=== PATIENT | female | born 1970 | race Caucasian/White ===

== ENCOUNTER 2017-09-26 18:25 | Emergency (ER) | payer BC ==
[~2017-09-26] VITALS: Ht 160 cm; Wt 56.7 kg
[~2017-09-26 18:25] MED LIST: [UNRECOGNIZED DRUG - CODE] PO
[2017-09-26 18:32] VITALS: BP 116/75
[2017-09-26] MEDS ORDERED: ONDANSETRON HCL 4 MG/2 ML VIAL IM ONE (21:15)
[2017-09-26] MEDS ORDERED: MEPERIDINE HCL (50 MG/ML) 1 ML VIAL IM ONE (21:15)
== END 2017-09-27 00:59 | disposition home or self-care (01) ==
LOC: ER 18:25 → MERGE 18:25 → ER 09-27 00:59
DX: R51 Headache (principal)
CPT/HCPCS: 70450; 96372; 99284; J2175; J2405

== ENCOUNTER → 2018-08-15 | Outpatient (CLI) | payer BC ==
[2018-08-15 08:08] LABS: Basophils # (auto) 0 uL; Eosinophils # (auto) 0.1 uL; Monocytes # (auto) 0.5 uL; Nucleated Red Blood Cells % 0.1 %
[2018-08-15 08:11] LABS: Basophils % (auto) 0.5 % (0.0-2.0); Eosinophils % (auto) 1.7 % (0.0-7.0); Hematocrit 41.7 % (36.0-46.0); Hemoglobin 14.4 g/dL (12.2-16.2); Lymphocytes % (auto) 46.3 % (10.0-50.0); Mean Corpuscular Hemoglobin 33.9 pg (28.0-32.0); Mean Corpuscular Hgb Conc. 34.6 g/dL (32.0-36.0); Monocytes % (auto) 7.6 % (0.0-12.0); Neutrophils # (auto) 2.9 uL; Neutrophils % (auto) 43.9 % (37.0-80.0); Platelet Count (auto) 279 10^3/uL (140-450); Red Blood Cells 4.26 10^6/uL (4.0-5.20); Red Cell Distribution Width 13.7 % (11.8-14.3); White Blood Cell 6.6 10^3/uL (4.4-10.8)
[2018-08-15 08:15] LABS: Albumin 3.3 g/dL (3.4-5.0); BUN/Creatinine Ratio 16.8; Calcium 8.5 mg/dL (8.5-10.1); Potassium 3.8 mmol/L (3.5-5.1)
[2018-08-15 08:19] LABS: Bilirubin, Total 0.4 mg/dL (0.2-1.0); CRP High Sensitivity 0.46 mg/dL (< 0.3); Total Protein 7.6 g/dL (6.4-8.2)
== END | disposition home or self-care (01) ==
LOC: LAB 07:21
PROVIDERS: ATTEND Internal Medicine
DX: K50.90 Crohn's disease, unspecified, without complications (principal); E78.49 Other hyperlipidemia
CPT/HCPCS: 36415; 80053; 80061; 85025; 86141

== ENCOUNTER → 2018-12-12 | Outpatient (CLI) | payer BC ==
[2018-12-12 08:21] LABS: Basophils # (auto) 0 uL; Basophils % (auto) 0.4 % (0.0-2.0); Eosinophils # (auto) 0.1 uL; Eosinophils % (auto) 1.8 % (0.0-7.0); Hematocrit 43.2 % (36.0-46.0); Hemoglobin 14.8 g/dL (12.2-16.2); Lymphocytes # (auto) 3.4 uL; Lymphocytes % (auto) 40.5 % (10.0-50.0); Mean Corpuscular Hemoglobin 33.4 pg (28.0-32.0); Mean Corpuscular Hgb Conc. 34.2 g/dL (32.0-36.0); Mean Corpuscular Volume 97.5 fL (80.0-100.0); Monocytes # (auto) 0.6 uL; Monocytes % (auto) 6.8 % (0.0-12.0); Neutrophils # (auto) 4.2 uL; Neutrophils % (auto) 50.5 % (37.0-80.0); Platelet Count (auto) 280 10^3/uL (140-450); Red Blood Cells 4.43 10^6/uL (4.0-5.20); White Blood Cell 8.3 10^3/uL (4.4-10.8)
[2018-12-12 09:04] LABS: Albumin 3.6 g/dL (3.4-5.0); Calcium 9.1 mg/dL (8.5-10.1); Potassium 3.8 mmol/L (3.5-5.1)
[2018-12-12 09:08] LABS: BUN/Creatinine Ratio 16.2; Bilirubin, Total 0.6 mg/dL (0.2-1.0); CRP High Sensitivity 0.05 mg/dL (< 0.3); Total Protein 7.8 g/dL (6.4-8.2)
== END | disposition home or self-care (01) ==
LOC: LAB 07:26
PROVIDERS: ATTEND Internal Medicine
DX: K50.90 Crohn's disease, unspecified, without complications (principal); R61 Generalized hyperhidrosis
CPT/HCPCS: 36415; 80053; 83001; 83615; 85025; 86141

== ENCOUNTER → 2019-02-27 | Outpatient (CLI) | payer BC ==
[2019-02-27 10:46] LABS: Basophils # (auto) 0.1 uL; Eosinophils # (auto) 0.1 uL; Eosinophils % (auto) 1.3 % (0.0-7.0); Hematocrit 43.4 % (36.0-46.0); Hemoglobin 14.9 g/dL (12.2-16.2); Lymphocytes # (auto) 3.2 uL; Lymphocytes % (auto) 42.3 % (10.0-50.0); Mean Corpuscular Hemoglobin 33.4 pg (28.0-32.0); Mean Corpuscular Hgb Conc. 34.2 g/dL (32.0-36.0); Mean Corpuscular Volume 97.8 fL (80.0-100.0); Monocytes # (auto) 0.5 uL; Monocytes % (auto) 6.1 % (0.0-12.0); Neutrophils # (auto) 3.8 uL; Neutrophils % (auto) 49.3 % (37.0-80.0); Platelet Count (auto) 298 10^3/uL (140-450); Red Blood Cells 4.44 10^6/uL (4.0-5.20); White Blood Cell 7.7 10^3/uL (4.4-10.8)
[2019-02-27 12:25] LABS: Potassium 4.1 mmol/L (3.5-5.1)
[2019-02-27 12:49] LABS: Albumin 3.6 g/dL (3.4-5.0); BUN/Creatinine Ratio 15.6; Bilirubin, Total 0.5 mg/dL (0.2-1.0); Calcium 8.7 mg/dL (8.5-10.1); Total Protein 7.4 g/dL (6.4-8.2)
== END | disposition home or self-care (01) ==
LOC: LAB 10:28
PROVIDERS: ATTEND Internal Medicine Gastroenterology
DX: K50.90 Crohn's disease, unspecified, without complications (principal)
CPT/HCPCS: 36415; 80053; 85025

== ENCOUNTER → 2019-05-24 | Outpatient (CLI) | payer BC ==
[2019-05-24 13:11] LABS: Basophils # (auto) 0.1 uL; Basophils % (auto) 0.6 % (0.0-2.0); Eosinophils # (auto) 0.2 uL; Eosinophils % (auto) 1.5 % (0.0-7.0); Hematocrit 45.9 % (36.0-46.0); Hemoglobin 15.6 g/dL (12.2-16.2); Lymphocytes % (auto) 27.7 % (10.0-50.0); Mean Corpuscular Hemoglobin 33.4 pg (28.0-32.0); Mean Corpuscular Hgb Conc. 34.1 g/dL (32.0-36.0); Mean Corpuscular Volume 97.9 fL (80.0-100.0); Monocytes # (auto) 0.7 uL; Monocytes % (auto) 6.3 % (0.0-12.0); Neutrophils # (auto) 6.9 uL; Neutrophils % (auto) 63.9 % (37.0-80.0); Platelet Count (auto) 271 10^3/uL (140-450); Red Blood Cells 4.68 10^6/uL (4.0-5.20); Red Cell Distribution Width 13.1 % (11.8-14.3); White Blood Cell 10.8 10^3/uL (4.4-10.8)
[2019-05-24 13:22] LABS: Calcium 9.6 mg/dL (8.5-10.1)
[2019-05-24 13:26] LABS: BUN/Creatinine Ratio 16.3; Bilirubin, Total 0.6 mg/dL (0.2-1.0); Total Protein 8.3 g/dL (6.4-8.2)
== END | disposition home or self-care (01) ==
LOC: LAB 12:49
PROVIDERS: ATTEND Internal Medicine
DX: J02.9 Acute pharyngitis, unspecified (principal)
CPT/HCPCS: 36415; 80053; 85025; 85730; 86308; 87070

== ENCOUNTER 2019-05-25 08:51 | Emergency (ER) | payer BC ==
[~2019-05-25] VITALS: Ht 160 cm; Wt 58.5 kg
[2019-05-25 09:04] VITALS: BP 123/61
[2019-05-25] MEDS ORDERED: cefTRIAXone SOD 1,000 MG VL IM ONE (11:00)
== END 2019-05-25 11:17 | disposition home or self-care (01) ==
LOC: ER 08:51
DX: J02.9 Acute pharyngitis, unspecified (principal)
CPT/HCPCS: 96372; 99283; J0696

== ENCOUNTER → 2019-05-27 | Outpatient (CLI) | payer BC ==
[~2019-05-27] MED LIST changes: +GABA100C9 PO
[2019-05-27 13:19] LABS: Basophils # (auto) 0 uL; Basophils % (auto) 0.5 % (0.0-2.0); Eosinophils # (auto) 0 uL; Eosinophils % (auto) 0.3 % (0.0-7.0); Hematocrit 43.3 % (36.0-46.0); Hemoglobin 15.1 g/dL (12.2-16.2); Lymphocytes # (auto) 1.5 uL; Mean Corpuscular Hemoglobin 34.2 pg (28.0-32.0); Mean Corpuscular Hgb Conc. 34.8 g/dL (32.0-36.0); Mean Corpuscular Volume 98.3 fL (80.0-100.0); Monocytes # (auto) 0.2 uL; Neutrophils # (auto) 7.1 uL; Neutrophils % (auto) 80.2 % (37.0-80.0); Platelet Count (auto) 281 10^3/uL (140-450); Red Blood Cells 4.41 10^6/uL (4.0-5.20); White Blood Cell 8.8 10^3/uL (4.4-10.8)
[2019-05-27 13:52] LABS: Calcium 9.3 mg/dL (8.5-10.1); Potassium 3.9 mmol/L (3.5-5.1)
[2019-05-27 13:58] LABS: Albumin 4.1 g/dL (3.4-5.0); BUN/Creatinine Ratio 15.7; Bilirubin, Total 0.4 mg/dL (0.2-1.0); Total Protein 8.6 g/dL (6.4-8.2)
== END | disposition home or self-care (01) ==
LOC: LAB 12:50
PROVIDERS: ATTEND Internal Medicine
DX: J02.9 Acute pharyngitis, unspecified (principal); R53.83 Other fatigue
CPT/HCPCS: 36415; 80053; 85025; 85652; 86644; 86645; 86664; 86703

== ENCOUNTER 2019-05-30 13:22 | Inpatient (IN) | payer BC ==
[~2019-05-30] VITALS: Ht 160 cm; Wt 63.0 kg
[~2019-05-30 13:22] MED LIST changes: -GABA100C9 PO
[2019-05-30 14:10] LABS: Basophils # (auto) 0.1 uL; Basophils % (auto) 0.7 % (0.0-2.0); Eosinophils # (auto) 0.1 uL; Eosinophils % (auto) 0.8 % (0.0-7.0); Hematocrit 43.6 % (36.0-46.0); Lymphocytes # (auto) 4.5 uL; Lymphocytes % (auto) 36.8 % (10.0-50.0); Mean Corpuscular Hgb Conc. 34.4 g/dL (32.0-36.0); Mean Corpuscular Volume 95.8 fL (80.0-100.0); Monocytes # (auto) 0.9 uL; Monocytes % (auto) 7.7 % (0.0-12.0); Neutrophils # (auto) 6.6 uL; Nucleated Red Blood Cells % 0.1 %; Platelet Count (auto) 338 10^3/uL (140-450); Red Blood Cells 4.55 10^6/uL (4.0-5.20); Red Cell Distribution Width 12.9 % (11.8-14.3); White Blood Cell 12.3 10^3/uL (4.4-10.8)
[2019-05-30] MEDS ORDERED: SODIUM CHLORIDE 0.9% 1,000 ML IV ONE (14:14)
[2019-05-30] MEDS ORDERED: KETOROLAC TROMETH 30 MG/ML 1ML VIAL IV ONE (14:15)
[2019-05-30] MEDS ORDERED: ONDANSETRON HCL 4 MG/2 ML VIAL IV ONE (14:15)
[2019-05-30 14:43] LABS: Albumin 3.7 g/dL (3.4-5.0); Calcium 9.1 mg/dL (8.5-10.1); Potassium 3.6 mmol/L (3.5-5.1)
[2019-05-30 14:45] LABS: BUN/Creatinine Ratio 19.6
[2019-05-30 14:48] LABS: Bilirubin, Total 0.4 mg/dL (0.2-1.0); Total Protein 7.9 g/dL (6.4-8.2)
[2019-05-30] MEDS ORDERED: ACETAMINOPHEN 500 MG TAB PO PRN (17:30)
[2019-05-30 17:55] LABS: Amylase 54 U/L (25-115); Lipase 218 U/L (73-393)
[2019-05-30] MEDS: SODIUM CHLORIDE 0.9% 1,000 ML IV SCH (18:17)
[2019-05-30] MEDS: MORPHINE SULFATE 4 MG/ML SYR/VIAL IV PRN (18:40)
[2019-05-30] MEDS: PROMETHAZINE HCL 25 MG/ML 1ML IV PRN (18:40)
[2019-05-30] MEDS ORDERED: diphenhdrAMINE HCL 25 MG CAP PO ONE (19:00)
[2019-05-30] MEDS ORDERED: methylPREDNISolone SOD SUCC 40 MG/ML VL IV ONE (19:00)
[2019-05-30] MEDS ORDERED: GABA100C9 PO (20:59)
[2019-05-30 22:00] VITALS: BP 121/69
[2019-05-30] MEDS: FAMOTIDINE 20 MG TAB PO SCH (22:00)
[2019-05-31] MEDS: MORPHINE SULFATE 4 MG/ML SYR/VIAL IV PRN ×5 (00:38→21:32)
[2019-05-31] MEDS: LORazepam 0.5 MG TAB PO PRN ×2 (01:20→23:04)
[2019-05-31] MEDS: TEMAZEPAM 15 MG CAP PO PRN ×2 (01:20→21:32)
[2019-05-31] MEDS: traMADol HCL 50 MG TAB PO PRN (01:20)
[2019-05-31 05:00] VITALS: BP 106/58
[2019-05-31] MEDS: SODIUM CHLORIDE 0.9% 1,000 ML IV SCH ×2 (06:16→10:47)
[2019-05-31 09:00] VITALS: BP 119/63
[2019-05-31] MEDS: FAMOTIDINE 20 MG TAB PO SCH ×2 (09:16→21:31)
[2019-05-31] MEDS: ENOXAPARIN SOD 40 MG/0.4 ML SYRINGE SC SCH (09:16)
[2019-05-31] MEDS ORDERED: FLUCONAZOLE 100 MG TAB PO ONE (10:15)
[2019-05-31] MEDS: PROMETHAZINE HCL 25 MG/ML 1ML IV PRN (10:47)
[2019-05-31 10:59] LABS: Basophils # (auto) 0 uL; Basophils % (auto) 0.1 % (0.0-2.0); Eosinophils # (auto) 0 uL; Eosinophils % (auto) 0.3 % (0.0-7.0); Hematocrit 38.9 % (36.0-46.0); Hemoglobin 13.5 g/dL (12.2-16.2); Lymphocytes # (auto) 3.1 uL; Lymphocytes % (auto) 26.6 % (10.0-50.0); Mean Corpuscular Hemoglobin 33.7 pg (28.0-32.0); Mean Corpuscular Hgb Conc. 34.7 g/dL (32.0-36.0); Mean Corpuscular Volume 97.4 fL (80.0-100.0); Monocytes % (auto) 8.1 % (0.0-12.0); Neutrophils # (auto) 7.6 uL; Neutrophils % (auto) 64.9 % (37.0-80.0); Platelet Count (auto) 301 10^3/uL (140-450); White Blood Cell 11.8 10^3/uL (4.4-10.8)
[2019-05-31 11:16] LABS: Calcium 7.8 mg/dL (8.5-10.1); Potassium 3.9 mmol/L (3.5-5.1)
[2019-05-31 11:18] LABS: BUN/Creatinine Ratio 15.6
[2019-05-31 12:38] LABS: Urine Bacteria NONE SEEN /hpf (None Seen); Urine Blood 2+ /uL (Negative); Urine WBC 1 /hpf (0 - 5)
[2019-05-31 13:00] VITALS: BP 103/53
[2019-05-31 17:25] VITALS: BP 104/57
[2019-05-31 22:00] VITALS: BP 117/71
[2019-06-01] MEDS: SODIUM CHLORIDE 0.9% 1,000 ML IV SCH (03:12)
[2019-06-01] MEDS: MORPHINE SULFATE 4 MG/ML SYR/VIAL IV PRN ×4 (03:13→21:50)
[2019-06-01 05:00] VITALS: BP 99/54
[2019-06-01 05:53] LABS: Hemoglobin 12.6 g/dL (12.2-16.2); White Blood Cell 9.8 10^3/uL (4.4-10.8)
[2019-06-01 05:55] LABS: Hematocrit 35.8 % (36.0-46.0); Mean Corpuscular Hemoglobin 34.7 pg (28.0-32.0); Mean Corpuscular Hgb Conc. 35.2 g/dL (32.0-36.0); Mean Corpuscular Volume 98.5 fL (80.0-100.0); Platelet Count (auto) 267 10^3/uL (140-450); Red Blood Cells 3.64 10^6/uL (4.0-5.20)
[2019-06-01 06:01] LABS: Basophils % (manual) 0 (0.0-2.0); Blast Cells 0; Metamyelocytes % 0; Myelocytes % 0; Promyelocytes % 0; Reactive Lymphocytes 0
[2019-06-01 06:06] LABS: Potassium 3.7 mmol/L (3.5-5.1)
[2019-06-01 06:09] LABS: BUN/Creatinine Ratio 16.3; Calcium 7.5 mg/dL (8.5-10.1)
[2019-06-01 06:48] LABS: Band Neutrophils % (manual) 1; Eosinophils % (manual) 3 (0-7); Lymphocytes % (manual) 58 (10.0-50.0); Monocytes % (manual) 9 (0-12)
[2019-06-01 08:00] VITALS: BP 92/54
[2019-06-01] MEDS: FAMOTIDINE 20 MG TAB PO SCH ×2 (09:45→22:44)
[2019-06-01] MEDS: ENOXAPARIN SOD 40 MG/0.4 ML SYRINGE SC SCH (09:45)
[2019-06-01] MEDS: FLUCONAZOLE 100 MG TAB PO SCH (09:45)
[2019-06-01 10:00] VITALS: BP 92/54
[2019-06-01 13:00] VITALS: BP 95/56
[2019-06-01 17:00] VITALS: BP 106/53
[2019-06-01] MEDS: LORazepam 0.5 MG TAB PO PRN (22:44)
[2019-06-01] MEDS: TEMAZEPAM 15 MG CAP PO PRN (22:45)
[2019-06-01 22:56] VITALS: BP 106/58
[2019-06-02] MEDS: SODIUM CHLORIDE 0.9% 1,000 ML IV SCH ×2 (00:54→12:30)
[2019-06-02 05:52] VITALS: BP 107/55
[2019-06-02 09:00] VITALS: BP 98/61
[2019-06-02] MEDS: FLUCONAZOLE 100 MG TAB PO SCH (09:20)
[2019-06-02] MEDS: PROMETHAZINE HCL 25 MG/ML 1ML IV PRN ×3 (09:20→18:30)
[2019-06-02] MEDS: FAMOTIDINE 20 MG TAB PO SCH ×2 (09:20→22:04)
[2019-06-02] MEDS: ENOXAPARIN SOD 40 MG/0.4 ML SYRINGE SC SCH (09:21)
[2019-06-02] MEDS: MORPHINE SULFATE 4 MG/ML SYR/VIAL IV PRN ×4 (09:21→22:32)
[2019-06-02 13:00] VITALS: BP 107/60
[2019-06-02 17:00] VITALS: BP 109/46
[2019-06-02 22:00] VITALS: BP 107/65
[2019-06-03] MEDS: LORazepam 0.5 MG TAB PO PRN (00:03)
[2019-06-03 05:55] VITALS: BP 123/55
[2019-06-03] MEDS: SODIUM CHLORIDE 0.9% 1,000 ML IV SCH (06:25)
[2019-06-03 08:00] VITALS: BP 110/52
[2019-06-03 09:00] VITALS: BP 110/52
[2019-06-03] MEDS: FLUCONAZOLE 100 MG TAB PO SCH (09:44)
[2019-06-03] MEDS: FAMOTIDINE 20 MG TAB PO SCH (09:45)
[2019-06-03] MEDS: ENOXAPARIN SOD 40 MG/0.4 ML SYRINGE SC SCH (09:45)
[2019-06-03] MEDS: traMADol HCL 50 MG TAB PO PRN (09:56)
[2019-06-03] MEDS: PROMETHAZINE HCL 25 MG/ML 1ML IV PRN (10:39)
[2019-06-03] MEDS ORDERED: FLUC100T34 PO (12:12)
== END 2019-06-03 16:35 | disposition home or self-care (01) | DRG 865 ==
LOC: ER 13:22 → OVERFLOW 13:23 → WEST WING 20:05
PROVIDERS: ADMIT Internal Medicine; ATTEND Internal Medicine Nephrology
DX: B34.9 Viral infection, unspecified (principal); N17.0 Acute kidney failure with tubular necrosis; K50.90 Crohn's disease, unspecified, without complications; R65.10 Systemic inflammatory response syndrome (SIRS) of non-infectious origin without acute organ dysfunction; R61 Generalized hyperhidrosis; J02.9 Acute pharyngitis, unspecified; E86.0 Dehydration; R00.1 Bradycardia, unspecified; G43.909 Migraine, unspecified, not intractable, without status migrainosus; E78.5 Hyperlipidemia, unspecified; M19.90 Unspecified osteoarthritis, unspecified site; Z79.899 Other long term (current) drug therapy; Z82.49 Family history of ischemic heart disease and other diseases of the circulatory system; Z85.41 Personal history of malignant neoplasm of cervix uteri
CPT/HCPCS: 36415; 70490; 71046; 74176; 80048; 80053; 81001; 82150; 83615; 83690; 83735; 84439; 84443; 85007; 85025; 85027; 85652; 86038; 87040; 87804; 93005; G0378; J1885; J2405

== ENCOUNTER → 2019-06-07 | Outpatient (CLI) | payer BC ==
[~2019-06-07] MED LIST changes: +FLUC100T34 PO; +GABA100C9 PO
[2019-06-07 12:53] LABS: Basophils # (auto) 0.1 uL; Basophils % (auto) 0.6 % (0.0-2.0); Eosinophils # (auto) 0.1 uL; Eosinophils % (auto) 0.6 % (0.0-7.0); Hematocrit 43.4 % (36.0-46.0); Lymphocytes # (auto) 2.6 uL; Mean Corpuscular Hemoglobin 33.6 pg (28.0-32.0); Mean Corpuscular Hgb Conc. 34.6 g/dL (32.0-36.0); Mean Corpuscular Volume 97.2 fL (80.0-100.0); Monocytes # (auto) 0.6 uL; Neutrophils # (auto) 6.8 uL; Neutrophils % (auto) 66.8 % (37.0-80.0); Platelet Count (auto) 328 10^3/uL (140-450); Red Blood Cells 4.46 10^6/uL (4.0-5.20); Red Cell Distribution Width 12.7 % (11.8-14.3); White Blood Cell 10.1 10^3/uL (4.4-10.8)
[2019-06-07 13:59] LABS: Albumin 3.9 g/dL (3.4-5.0); Calcium 9.1 mg/dL (8.5-10.1); Potassium 3.9 mmol/L (3.5-5.1)
[2019-06-07 14:02] LABS: BUN/Creatinine Ratio 15.5; Bilirubin, Total 0.5 mg/dL (0.2-1.0); Total Protein 8.1 g/dL (6.4-8.2)
== END | disposition home or self-care (01) ==
LOC: LAB 11:55
PROVIDERS: ATTEND Internal Medicine
DX: R11.0 Nausea (principal); K50.90 Crohn's disease, unspecified, without complications
CPT/HCPCS: 36415; 80053; 85025; 85652

== ENCOUNTER → 2019-06-28 | Day surgery (SDC) | payer BC ==
[2019-06-25 14:10] LABS: Lymphocytes # (auto) 2.8 uL; Monocytes # (auto) 0.6 uL; Monocytes % (auto) 8.2 % (0.0-12.0)
[2019-06-25 14:12] LABS: Basophils # (auto) 0.1 uL; Basophils % (auto) 0.8 % (0.0-2.0); Eosinophils # (auto) 0.2 uL; Hematocrit 41.8 % (36.0-46.0); Hemoglobin 14.5 g/dL (12.2-16.2); Mean Corpuscular Hgb Conc. 34.7 g/dL (32.0-36.0); Mean Corpuscular Volume 98.1 fL (80.0-100.0); Platelet Count (auto) 291 10^3/uL (140-450); Red Blood Cells 4.26 10^6/uL (4.0-5.20); Red Cell Distribution Width 13.4 % (11.8-14.3); White Blood Cell 7.7 10^3/uL (4.4-10.8)
[2019-06-25 14:25] LABS: Partial Thromboplastin Time 22.7 sec (23.64-32.05)
[~2019-06-28] VITALS: Ht 160 cm; Wt 55.3 kg
[~2019-06-28] MED LIST changes: +EREN70IN SC; -FLUC100T34 PO; -GABA100C9 PO; +INFL100I IV; +LIDOCAINE VISCOUS 2% 15ML UD ONE; +RIZA10TA22 PO; +SODIUM CHLORIDE LOCK 10 ML ONE; -[UNRECOGNIZED DRUG - CODE] PO; +diphenhdrAMINE HCL 50 MG/1 ML VL ONE
[2019-06-28] MEDS: MIDAZOLAM HCL 5 MG/ML-1ML VIAL ONE ×3 (09:42→09:53)
[2019-06-28] MEDS: fentaNYL CITRATE 100 MCG/2 ML VL ONE ×3 (09:42→09:53)
[2019-06-28 10:37] VITALS: BP 132/68
== END | disposition home or self-care (01) ==
LOC: GI 08:23
PROVIDERS: ATTEND Internal Medicine Gastroenterology
DX: K50.90 Crohn's disease, unspecified, without complications (principal); K29.50 Unspecified chronic gastritis without bleeding; K63.89 Other specified diseases of intestine; G43.909 Migraine, unspecified, not intractable, without status migrainosus; Z98.890 Other specified postprocedural states; Z79.899 Other long term (current) drug therapy; Z85.41 Personal history of malignant neoplasm of cervix uteri
CPT/HCPCS: 36415; 43239; 45380; 84702; 85025; 85610; 85730; 88305; 88342; J1200; J2250; J3010; J7030; 99152; 99153

== ENCOUNTER → 2019-10-03 | Outpatient (CLI) | payer BC ==
[~2019-10-03] MED LIST changes: -LIDOCAINE VISCOUS 2% 15ML UD ONE; -SODIUM CHLORIDE LOCK 10 ML ONE; -diphenhdrAMINE HCL 50 MG/1 ML VL ONE
[2019-10-03 16:12] LABS: Basophils # (auto) 0.1 10 ^3/uL (0-0.2); Eosinophils # (auto) 0.2 10 ^3/uL (0-0.8); Eosinophils % (auto) 3.1 % (0.0-7.0); Hematocrit 43.6 % (36.0-46.0); Hemoglobin 14.8 g/dL (12.2-16.2); Lymphocytes # (auto) 3.3 10 ^3/uL (0.4-5.4); Lymphocytes % (auto) 43.4 % (10.0-50.0); Mean Corpuscular Hemoglobin 33.1 pg (28.0-32.0); Mean Corpuscular Hgb Conc. 33.8 g/dL (32.0-36.0); Mean Corpuscular Volume 97.8 fL (80.0-100.0); Monocytes # (auto) 0.8 10 ^3/uL (0-1.3); Neutrophils # (auto) 3.2 10 ^3/uL (1.6-8.6); Neutrophils % (auto) 42.5 % (37.0-80.0); Nucleated Red Blood Cells % 0.1 %; Platelet Count (auto) 156 10^3/uL (140-450); Red Blood Cells 4.46 10^6/uL (4.0-5.20); Red Cell Distribution Width 12.8 % (11.8-14.3); White Blood Cell 7.5 10^3/uL (4.4-10.8)
[2019-10-03 16:21] LABS: Urine Bacteria FEW /hpf (None Seen); Urine Blood 1+ /uL (Negative); Urine Mucus FEW (None Seen); Urine Specific Gravity 1.022 (1.001-1.035); Urine WBC 1 /hpf (0 - 5)
[2019-10-03 16:28] LABS: Albumin 3.1 g/dL (3.4-5.0); BUN/Creatinine Ratio 12.9; Calcium 8.4 mg/dL (8.5-10.1)
[2019-10-03 16:31] LABS: Bilirubin, Total 0.3 mg/dL (0.2-1.0)
== END | disposition home or self-care (01) ==
LOC: LAB 15:54
PROVIDERS: ATTEND Internal Medicine
DX: J31.2 Chronic pharyngitis (principal)
CPT/HCPCS: 36415; 80053; 81001; 82150; 83690; 84439; 85025; 85652; 87070

== ENCOUNTER → 2019-11-18 | Outpatient (CLI) | payer BC | END | disposition home or self-care (01) | LOC: LAB 14:24 | PROVIDERS: ATTEND Physician Assistant | DX: Z20.828 Contact with and (suspected) exposure to other viral communicable diseases (principal) | CPT/HCPCS: 87635 ==

== ENCOUNTER → 2020-01-08 | Outpatient (CLI) | payer BC ==
[2020-01-08 09:07] LABS: Urine WBC None Seen /hpf (0 - 5)
[2020-01-08 09:10] LABS: Basophils # (auto) 0.1 10 ^3/uL (0-0.2); Basophils % (auto) 0.9 % (0.0-2.0); Eosinophils # (auto) 0.1 10 ^3/uL (0-0.8); Eosinophils % (auto) 1.5 % (0.0-7.0); Hematocrit 42.8 % (36.0-46.0); Hemoglobin 14.7 g/dL (12.2-16.2); Lymphocytes # (auto) 2.8 10 ^3/uL (0.4-5.4); Lymphocytes % (auto) 36.5 % (10.0-50.0); Mean Corpuscular Hemoglobin 33.6 pg (28.0-32.0); Mean Corpuscular Hgb Conc. 34.3 g/dL (32.0-36.0); Monocytes # (auto) 0.5 10 ^3/uL (0-1.3); Monocytes % (auto) 6.8 % (0.0-12.0); Neutrophils # (auto) 4.1 10 ^3/uL (1.6-8.6); Neutrophils % (auto) 54.3 % (37.0-80.0); Platelet Count (auto) 272 10^3/uL (140-450); Red Blood Cells 4.37 10^6/uL (4.0-5.20); Red Cell Distribution Width 12.3 % (11.8-14.3); White Blood Cell 7.6 10^3/uL (4.4-10.8)
[2020-01-08 09:22] LABS: Urine Bacteria FEW /hpf (None Seen); Urine Blood 2+ /uL (Negative); Urine Mucus FEW (None Seen); Urine Specific Gravity 1.026 (1.001-1.035)
[2020-01-08 10:05] LABS: Albumin 3.6 g/dL (3.4-5.0); Potassium 3.7 mmol/L (3.5-5.1)
[2020-01-08 10:10] LABS: BUN/Creatinine Ratio 15.4; Bilirubin, Total 0.5 mg/dL (0.2-1.0); Total Protein 7.5 g/dL (6.4-8.2)
== END | disposition home or self-care (01) ==
LOC: LAB 08:54
PROVIDERS: ATTEND Internal Medicine
DX: K50.90 Crohn's disease, unspecified, without complications (principal); E78.5 Hyperlipidemia, unspecified
CPT/HCPCS: 36415; 80053; 80061; 81001; 83615; 84439; 84443; 85025; 85652

== ENCOUNTER → 2020-01-22 | Outpatient (CLI) | payer BC ==
[2020-01-22 16:45] LABS: Leuteinizing Hormone 6.3 IU/L
[2020-01-24 13:44] LABS: Follicle Stimulating Hormone 8.37 IU/L (SEE BELOW)
== END | disposition home or self-care (01) ==
LOC: LAB 15:23
PROVIDERS: ATTEND Obstetrics & Gynecology
DX: N95.1 Menopausal and female climacteric states (principal)
CPT/HCPCS: 36415; 82670; 83001; 83002; 84403; 84443

== ENCOUNTER → 2020-02-06 | Outpatient (CLI) | payer BC ==
[2020-02-06 09:39] LABS: Eosinophils # (auto) 0.1 10 ^3/uL (0-0.8); Lymphocytes % (auto) 35.6 % (10.0-50.0); Mean Corpuscular Hemoglobin 34.2 pg (28.0-32.0); Monocytes # (auto) 0.6 10 ^3/uL (0-1.3); Red Cell Distribution Width 12.5 % (11.8-14.3)
[2020-02-06 09:41] LABS: Basophils # (auto) 0.1 10 ^3/uL (0-0.2); Basophils % (auto) 0.9 % (0.0-2.0); Eosinophils % (auto) 1.4 % (0.0-7.0); Hemoglobin 15.1 g/dL (12.2-16.2); Lymphocytes # (auto) 2.6 10 ^3/uL (0.4-5.4); Mean Corpuscular Hgb Conc. 35.2 g/dL (32.0-36.0); Mean Corpuscular Volume 97.1 fL (80.0-100.0); Monocytes % (auto) 8.2 % (0.0-12.0); Neutrophils % (auto) 53.9 % (37.0-80.0); Platelet Count (auto) 290 10^3/uL (140-450); Red Blood Cells 4.43 10^6/uL (4.0-5.20); White Blood Cell 7.4 10^3/uL (4.4-10.8)
[2020-02-06 10:00] LABS: Potassium 4.1 mmol/L (3.5-5.1)
[2020-02-06 10:04] LABS: BUN/Creatinine Ratio 18.5; Bilirubin, Total 0.4 mg/dL (0.2-1.0); Total Protein 7.6 g/dL (6.4-8.2)
== END | disposition home or self-care (01) ==
LOC: LAB 09:07
PROVIDERS: ATTEND Internal Medicine
DX: K50.00 Crohn's disease of small intestine without complications (principal)
CPT/HCPCS: 36415; 80053; 83615; 85025

== ENCOUNTER → 2020-03-25 | Outpatient (CLI) | payer BC ==
[2020-03-26 15:45] LABS: Basophils # (auto) 0.1 10 ^3/uL (0-0.2); Basophils % (auto) 0.7 % (0.0-2.0); Eosinophils # (auto) 0.1 10 ^3/uL (0-0.8); Eosinophils % (auto) 1.6 % (0.0-7.0); Hematocrit 41.8 % (36.0-46.0); Hemoglobin 14.6 g/dL (12.2-16.2); Lymphocytes # (auto) 3.6 10 ^3/uL (0.4-5.4); Lymphocytes % (auto) 40.2 % (10.0-50.0); Mean Corpuscular Hemoglobin 33.9 pg (28.0-32.0); Mean Corpuscular Volume 96.8 fL (80.0-100.0); Monocytes # (auto) 0.9 10 ^3/uL (0-1.3); Monocytes % (auto) 9.6 % (0.0-12.0); Neutrophils # (auto) 4.3 10 ^3/uL (1.6-8.6); Neutrophils % (auto) 47.9 % (37.0-80.0); Nucleated Red Blood Cells % 0.1 %; Red Blood Cells 4.31 10^6/uL (4.0-5.20); Red Cell Distribution Width 13.4 % (11.8-14.3); White Blood Cell 8.9 10^3/uL (4.4-10.8)
[2020-03-26 16:05] LABS: Albumin 3.4 g/dL (3.4-5.0); Calcium 8.5 mg/dL (8.5-10.1)
[2020-03-26 16:09] LABS: BUN/Creatinine Ratio 15.8; Bilirubin, Total 0.2 mg/dL (0.2-1.0); Total Protein 7.2 g/dL (6.4-8.2)
== END | disposition home or self-care (01) ==
LOC: LAB 12:04
PROVIDERS: ATTEND Nurse Practitioner Family
DX: Z20.828 Contact with and (suspected) exposure to other viral communicable diseases (principal)
CPT/HCPCS: 36415; 80053; 83615; 85025; C9803; U0003

== ENCOUNTER → 2020-06-10 | Outpatient (CLI) | payer BC ==
[2020-06-10 10:51] LABS: Urine Bacteria FEW /hpf (None Seen); Urine Blood 2+ /uL (Negative); Urine Mucus FEW (None Seen); Urine Specific Gravity 1.031 (1.001-1.035); Urine WBC 10 /hpf (0 - 5)
[2020-06-10 11:26] LABS: Cholesterol 268 mg/dL (< 200); HDL Cholesterol 70 mg/dL (40-59); LDL Cholesterol 179 mg/dL (< 100); Triglycerides 135 mg/dL (< 150)
== END | disposition home or self-care (01) ==
LOC: LAB 10:00
PROVIDERS: ATTEND Internal Medicine
DX: K50.90 Crohn's disease, unspecified, without complications (principal); E78.5 Hyperlipidemia, unspecified
CPT/HCPCS: 36415; 80061; 81001; 82607

== ENCOUNTER → 2020-06-17 | Outpatient (CLI) | payer BC ==
[2020-06-17 11:59] LABS: Basophils # (auto) 0 10 ^3/uL (0-0.2); Basophils % (auto) 0.1 % (0.0-2.0); Eosinophils # (auto) 0 10 ^3/uL (0-0.8); Eosinophils % (auto) 0.1 % (0.0-7.0); Hematocrit 42.2 % (36.0-46.0); Lymphocytes # (auto) 1.4 10 ^3/uL (0.4-5.4); Lymphocytes % (auto) 14.4 % (10.0-50.0); Mean Corpuscular Hgb Conc. 35.5 g/dL (32.0-36.0); Mean Corpuscular Volume 95.9 fL (80.0-100.0); Monocytes # (auto) 0.4 10 ^3/uL (0-1.3); Monocytes % (auto) 4.3 % (0.0-12.0); Neutrophils # (auto) 8.1 10 ^3/uL (1.6-8.6); Neutrophils % (auto) 81.1 % (37.0-80.0); Platelet Count (auto) 342 10^3/uL (140-450); Red Cell Distribution Width 13.1 % (11.8-14.3)
[2020-06-17 12:50] LABS: Albumin 3.9 g/dL (3.4-5.0); Calcium 8.8 mg/dL (8.5-10.1); Potassium 3.8 mmol/L (3.5-5.1)
[2020-06-17 12:54] LABS: BUN/Creatinine Ratio 17.2; Bilirubin, Total 0.6 mg/dL (0.2-1.0); Total Protein 8.3 g/dL (6.4-8.2)
== END | disposition home or self-care (01) ==
LOC: LAB 10:33
PROVIDERS: ATTEND Internal Medicine
DX: K50.00 Crohn's disease of small intestine without complications (principal)
CPT/HCPCS: 36415; 80053; 83615; 85025

== ENCOUNTER → 2020-07-15 | Outpatient (CLI) | payer BC ==
[2020-07-15 14:58] LABS: Basophils # (auto) 0 10 ^3/uL (0-0.2); Basophils % (auto) 0.4 % (0.0-2.0); Eosinophils # (auto) 0.2 10 ^3/uL (0-0.8); Eosinophils % (auto) 2.4 % (0.0-7.0); Hematocrit 39.5 % (36.0-46.0); Hemoglobin 13.9 g/dL (12.2-16.2); Lymphocytes # (auto) 2.8 10 ^3/uL (0.4-5.4); Mean Corpuscular Hemoglobin 33.7 pg (28.0-32.0); Mean Corpuscular Hgb Conc. 35.2 g/dL (32.0-36.0); Mean Corpuscular Volume 95.8 fL (80.0-100.0); Monocytes # (auto) 0.7 10 ^3/uL (0-1.3); Neutrophils # (auto) 3.1 10 ^3/uL (1.6-8.6); Neutrophils % (auto) 46.2 % (37.0-80.0); Nucleated Red Blood Cells % 0.1 %; Platelet Count (auto) 272 10^3/uL (140-450); Red Blood Cells 4.12 10^6/uL (4.0-5.20); Red Cell Distribution Width 13.1 % (11.8-14.3); White Blood Cell 6.8 10^3/uL (4.4-10.8)
[2020-07-15 15:24] LABS: Calcium 8.8 mg/dL (8.5-10.1); Potassium 3.9 mmol/L (3.5-5.1)
[2020-07-15 15:31] LABS: Albumin 3.4 g/dL (3.4-5.0); BUN/Creatinine Ratio 14.6; Bilirubin, Total 0.4 mg/dL (0.2-1.0); Total Protein 7.4 g/dL (6.4-8.2)
== END | disposition home or self-care (01) ==
LOC: LAB 14:42
PROVIDERS: ATTEND Internal Medicine
DX: K50.00 Crohn's disease of small intestine without complications (principal)
CPT/HCPCS: 36415; 80053; 83615; 85025

== ENCOUNTER → 2020-09-28 | Outpatient (CLI) | payer BC ==
[2020-09-28 09:08] LABS: Cholesterol 246 mg/dL (< 200); Triglycerides 84 mg/dL (< 150)
[2020-09-28 09:11] LABS: HDL Cholesterol 82 mg/dL (40-59); LDL Cholesterol 149 mg/dL (< 100)
== END | disposition home or self-care (01) ==
LOC: LAB 08:07
PROVIDERS: ATTEND Internal Medicine
DX: E78.5 Hyperlipidemia, unspecified (principal); E16.2 Hypoglycemia, unspecified
CPT/HCPCS: 36415; 80061; 83036